=== PATIENT | male | born 1980 | race Caucasian/White ===

== ENCOUNTER → 2019-05-03 16:30 | Outpatient (CLI) | payer OTHER, SELFPAY ==
[2019-05-03 19:04] LABS: Erythrocyte Sedimentation Rate 5 MM/HR (0-15)
[2019-05-03 19:39] LABS: Uric Acid 4.8 mg/dL (3.5-8.5)
[2019-05-03 19:45] LABS: Rheumatoid Factor < 8.6 IU/mL (<12.0)
[2019-05-05 15:07] LABS: Angiotensin Converting Enzyme 27 U/L (9-67)
[2019-05-06 16:22] LABS: ANA Screen, IFA NEGATIVE (NEGATIVE)
[2019-05-06 18:35] LABS: RPR Screen Nonreactive (Nonreactive)
[2019-05-07 12:15] LABS: Mitogen-NIL > 10.00 IU/mL; NIL 0.02 IU/mL; QuantiFERON TB NEGATIVE (Negative); TB1-NIL < 0.01 IU/mL; TB2-NIL < 0.01 IU/mL
[2019-05-18 09:54] LABS: Lysozyme (Muramidase) 4.7 mcg/mL (5.0-11.0)
== END ==
PROVIDERS: PCP Family Medicine; Visit Provider Ophthalmology
DX: H20.013 Primary iridocyclitis, bilateral (principal)
CPT/HCPCS: 36415; 82164; 84550; 85549; 85651; 86038; 86430; 86480; 86592; 86780

== ENCOUNTER → 2019-07-08 09:55 | Outpatient (CLI) | payer OTHER, SELFPAY ==
[2019-07-10 17:20] LABS: HLA B27 NEGATIVE (Negative)
== END ==
PROVIDERS: Family Provider Family Medicine; PCP Family Medicine; Visit Provider Ophthalmology
DX: H20.9 Unspecified iridocyclitis (principal)
CPT/HCPCS: 36415; 81374

== ENCOUNTER → 2019-12-30 10:18 | Outpatient (CLI) | payer OTHER, SELFPAY ==
--- NOTE | 2019-12-30 | DI.RAD.S_ITS ---
PROCEDURE: XR FINGER LT MIN 2V INDICATIONS: LEFT RING FINGER PAIN TECHNIQUE: AP hand, 2 views of the left ring finger acquired. COMPARISON: None. FINDINGS: Bones: No fractures or dislocations. No suspicious bony lesions. Soft tissues: No suspicious soft tissue calcifications. Mild soft tissue edema is noted in the 4th digit. IMPRESSION: No acute osseous abnormality. Soft tissue edema is noted in the 4th finger. Dictated by: Ty Shepard M.D. on 12/30/2019 at 11:09 Approved by: Ty Shepard M.D. on 12/30/2019 at 11:10
== END ==
PROVIDERS: Family Provider Family Medicine; PCP Family Medicine; Referring Provider Family Medicine; Visit Provider Family Medicine
DX: M79.645 Pain in left finger(s) (principal); M79.89 Other specified soft tissue disorders
CPT/HCPCS: 73140

== ENCOUNTER → 2020-06-23 08:46 | Outpatient (CLI) | payer OTHER, SELFPAY ==
--- NOTE | 2020-06-23 09:13 | DI.CT.S_ITS ---
PROCEDURE: CT ABDOMEN PELVIS WO/W CON INDICATIONS: Right sided kidney pain TECHNIQUE: Optional 5 mm thick noncontrast images acquired from the diaphragm to the symphysis pubis. After the administration of intravenous contrast, 5 mm thick images acquired from the diaphragm to the symphysis pubis after a 10-minute delay. 2 mm thick coronal and sagittal reformats were then performed of the kidneys and ureters. For radiation dose reduction, the following was used: automated exposure control, adjustment of mA and/or kV according to patient size. COMPARISON: None. FINDINGS: Image quality: Excellent. Lung bases: Lung bases are clear. Heart size is normal. Urinary system: Kidneys demonstrate no renal stones or hydronephrosis. No perinephric stranding. There is symmetric bilateral renal enhancement. There is an oval slightly hyperattenuating right renal lesion measuring up to 1.0 x 0.8 cm with suggestion of mild internal enhancement following contrast administration. Renal calyces appear normal in morphology when filled with contrast. Opacified portions of both ureters demonstrate normal caliber without suspicious filling defects. Bladder wall thickness is normal. No calcified bladder stones. Other solid organs: Evaluation of the liver demonstrates no focal hepatic lesions. The gallbladder appears within normal limits without calcified gallstones. Biliary system is non-dilated. Pancreas enhances normally. No peripancreatic fat stranding or fluid collections. No pancreatic duct dilatation. The spleen is normal in size. No adrenal nodules. Peritoneum and bowel: Bowel loops demonstrate normal wall thickness and caliber. The appendix is normal in appearance. There are few colonic diverticula without acute diverticulitis. Moderate colonic stool distention is demonstrated in the distal colon. No free fluid or air. Nodes and vessels: No retroperitoneal or mesenteric adenopathy by size criteria. Aorta and inferior vena cava are normal in size. Abdominal wall: No ventral hernias. Pelvis: No pathologic free pelvic fluid. No inguinal hernias or adenopathy. Bones: No suspicious bony lesions. No vertebral body compression fractures. IMPRESSION: 1. Slightly hyperattenuating right renal lesion with suggestion of internal enhancement. The findings may represent a hemorrhagic cyst with the change in internal attenuation due to volume averaging artifact from the adjacent renal collecting system but a renal mass cannot be excluded. Recommend initial further evaluation with a dedicated ultrasound. 2. No evidence of nephrolithiasis, obstructive uropathy, or suspicious filling defects in the renal collecting systems. Dictated by: Jamir Hill M.D. on 06/23/2020 at 13:56 Approved by: Jamir Hill M.D. on 06/23/2020 at 14:08
== END ==
PROVIDERS: Family Provider Family Medicine; PCP Family Medicine; Referring Provider Family Medicine; Visit Provider Family Medicine
DX: N23 Unspecified renal colic (principal)
CPT/HCPCS: 74178; Q9967

== ENCOUNTER → 2020-06-24 12:17 | Outpatient (CLI) | payer OTHER, SELFPAY ==
--- NOTE | 2020-06-24 | DI.US.S_ITS ---
PROCEDURE: US RENAL COMPLETE INDICATIONS: RIGHT RENAL MASS TECHNIQUE: Real-time scanning was performed of the kidneys and bladder, with image documentation. COMPARISON: [facility], CT, CT ABDOMEN PELVIS WO/W CON, 06/23/2020, 8:59. FINDINGS: Kidneys: Kidneys are normal in size. Right kidney measures 11.3 cm long; left kidney measures 13.6 cm long. Right renal cortical thickness is 1.2 cm; left renal cortical thickness is 1.8 cm. Renal cortical echotexture is normal. Trace right pelviectasis. No definite hydronephrosis or nephrolithiasis. No suspicious solid mass lesions. Right renal cyst with low level internal echoes measuring 1.0 x 0.7 x 0.5 cm, too small to characterize accurately. Bladder: Pre-void bladder volume is 648 mL. Post-void residual is 36 mL. Pre-void images demonstrate no intraluminal masses or stones. On pre-void images, both of the ureteral jets are noted with color Doppler interrogation. (Of note, ureteral jets may not be detectable in up to 25% of cases due to insufficient differences in specific gravity between ureteral and bladder urine). Miscellaneous: No free pelvic fluid. IMPRESSION: Minimally complicated right cyst. Trace right pelviectasis No discrete mass identified. Dictated by: Nick Evans M.D. on 06/24/2020 at 15:26 Approved by: Nick Evans M.D. on 06/24/2020 at 15:32
== END ==
PROVIDERS: Family Provider Family Medicine; PCP Family Medicine; Referring Provider Family Medicine; Visit Provider Family Medicine
DX: N28.9 Disorder of kidney and ureter, unspecified (principal); N28.1 Cyst of kidney, acquired
CPT/HCPCS: 76770

== ENCOUNTER → 2020-07-30 18:50 | Outpatient (CLI) | payer OTHER, SELFPAY ==
--- NOTE | 2020-07-30 | DI.RAD.S_ITS ---
PROCEDURE: XR SACRUM COCCYX MIN 2V INDICATIONS: Radiculopathy, lumbar region/Low Back Pain TECHNIQUE: 3 views of the sacrum and coccyx acquired. COMPARISON: None. FINDINGS: Bones: No fractures or dislocations. No suspicious bony lesions. Soft tissues: Visualized bowel gas pattern is normal. No suspicious soft tissue densities. IMPRESSION: No sacral or coccygeal injury is seen. No suspicion for impingement by inflammatory or neoplastic process based on plain film findings. Depending on the clinical status follow-up by MR scanning may become necessary. Dictated by: Harpreet Mahmood M.D. on 07/31/2020 at 10:14 Approved by: Harpreet Mahmood M.D. on 07/31/2020 at 10:14
--- NOTE | 2020-07-30 | DI.MRI.S_ITS ---
PROCEDURE: MR LUMBAR SPINE WO CON INDICATIONS: Radiculopathy, lumbar region/Low Back Pain TECHNIQUE: Noncontrast sagittal T1 spin echo and T2 fast echo, sagittal STIR, axial T1 and T2 fast spin echo through the lumbar spine. In cases with scoliosis, additional coronal T2 fast spin echo may be performed. COMPARISON: None. FINDINGS: Image quality: Excellent. Alignment and Curvature: There is normal bony alignment. Bone Marrow: Marrow is of normal overall signal. No acute vertebral body compression fractures. Spinal Cord: Normal position and appearance of the conus. Paraspinous Soft Tissues: No paravertebral masses. T12-L1: Normal appearance. L1-L2: Normal appearance. L2-L3: Normal appearance. L3-L4: Normal appearance. L4-L5: Normal appearance. L5-S1: Normal appearance. IMPRESSION: No spinal canal stenosis, neural foraminal stenosis, or findings of nerve root impingement. Dictated by: Velasquez Batista M.D. on 07/31/2020 at 9:25 Approved by: Velasquez Batista M.D. on 07/31/2020 at 9:34
--- NOTE | 2020-07-30 | DI.MRI.S_ITS ---
PROCEDURE: MR PELVIS WO CON INDICATIONS: Radiculopathy, lumbar region/Low Back Pain TECHNIQUE: Noncontrast axial and coronal T1 spin echo and STIR through the lumbosacral plexus region. Optional contrast may be given, followed by axial and coronal T1 spin echo with fat saturation through the sacral plexus. COMPARISON: [facility], MR, MR LUMBAR SPINE WO CON, 07/30/2020, 19:16. FINDINGS: Image quality: Excellent. Lumbosacral plexus: Superior to the piriformis muscles, the pre-plexal structures appear normal, including the lumbosacral trunk and S1 root. Just anterior to the piriformis muscles, the sacral plexus proper demonstrates normal morphology (lumbosacral trunk, S1 to S3 nerve roots). Inferior to the piriformis muscles, the sciatic nerves appear normal. Soft tissues: The piriformis muscles appear symmetric in size. No presacral masses. Rectum appears normal in caliber and wall thickness. No pathologic free pelvic fluid. No visualized adenopathy by size criteria. Bones: Marrow is normal in overall signal. IMPRESSION: Normal examination, no inflammation or mass is impinging on the lumbosacral plexus. No inflammatory or neoplastic process is suspected. Dictated by: Harpreet Mahmood M.D. on 07/31/2020 at 9:34 Approved by: Harpreet Mahmood M.D. on 07/31/2020 at 9:37
--- NOTE | 2020-07-30 | DI.RAD.S_ITS ---
PROCEDURE: XR LUMBAR SPINE 2-3V INDICATIONS: Radiculopathy, lumbar region/Low Back Pain TECHNIQUE: 3 views of the lumbar spine were acquired. COMPARISON: None. FINDINGS: Bones: 5 [id number] vertebrae are present. There is normal bony alignment. No vertebral body compression fractures. No suspicious bony lesions. Soft tissues: Overlying bowel gas pattern is normal. No suspicious soft tissue calcifications. IMPRESSION: Normal for age, source of current symptoms is not seen. Dictated by: Harpreet Mahmood M.D. on 07/31/2020 at 10:13 Approved by: Harpreet Mahmood M.D. on 07/31/2020 at 10:13
== END ==
PROVIDERS: Family Provider Family Medicine; PCP Family Medicine; Referring Provider Family Medicine; Visit Provider Family Medicine
DX: M54.16 Radiculopathy, lumbar region (principal); M54.5 Low back pain
CPT/HCPCS: 72100; 72148; 72195; 72220

== ENCOUNTER → 2020-10-27 10:53 | Outpatient (ROUT) | payer OTHER, SELFPAY ==
[2020-10-27 11:13] LABS: COVID19 -Nasal RAPID Negative (Negative)
== END ==
PROVIDERS: Family Provider Family Medicine; PCP Family Medicine; Visit Provider Family Medicine
DX: Z01.812 Encounter for preprocedural laboratory examination (principal)
CPT/HCPCS: 87635

== ENCOUNTER → 2021-01-08 13:05 | Outpatient (ROUT) | payer OTHER, SELFPAY ==
[2021-01-08 13:31] LABS: COVID19 -Nasal RAPID Negative (Negative)
== END ==
PROVIDERS: Family Provider Family Medicine; PCP Family Medicine; Visit Provider Family Medicine
DX: R11.0 Nausea (principal); R11.10 Vomiting, unspecified; R19.7 Diarrhea, unspecified; Z20.822 Contact with and (suspected) exposure to COVID-19
CPT/HCPCS: 87635

== ENCOUNTER → 2021-02-04 12:58 | Outpatient (ROUT) | payer OTHER, SELFPAY ==
[2021-02-04 13:19] LABS: COVID19 -Nasal RAPID Negative (Negative)
== END ==
PROVIDERS: Family Provider Family Medicine; PCP Family Medicine; Visit Provider Family Medicine
DX: Z20.822 Contact with and (suspected) exposure to COVID-19 (principal)
CPT/HCPCS: 87635

== ENCOUNTER → 2021-02-26 13:33 | Outpatient (ROUT) | payer OTHER, SELFPAY ==
[2021-02-26 13:54] LABS: COVID19 -Nasal RAPID Negative (Negative)
== END ==
PROVIDERS: Family Provider Family Medicine; PCP Family Medicine; Visit Provider Family Medicine
DX: J02.9 Acute pharyngitis, unspecified (principal); R09.89 Other specified symptoms and signs involving the circulatory and respiratory systems
CPT/HCPCS: 87635

== ENCOUNTER → 2021-03-17 17:31 | Outpatient (ROUT) | payer OTHER, SELFPAY ==
[2021-03-17 18:17] LABS: COVID19 -Nasal RAPID Negative (Negative)
== END ==
PROVIDERS: Family Provider Family Medicine; PCP Family Medicine; Visit Provider Family Medicine
DX: Z20.822 Contact with and (suspected) exposure to COVID-19 (principal)
CPT/HCPCS: 87635

== ENCOUNTER → 2021-03-22 12:21 | Outpatient (ROUT) | payer OTHER, SELFPAY ==
[2021-03-22 14:21] LABS: COVID19 -Nasal RAPID Negative (Negative)
== END ==
PROVIDERS: Family Provider Family Medicine; PCP Family Medicine; Visit Provider Family Medicine
DX: Z20.822 Contact with and (suspected) exposure to COVID-19 (principal)
CPT/HCPCS: 87635

== ENCOUNTER 2021-11-12 10:55 | Emergency (ER) | payer OTHER, SELFPAY ==
[2021-11-12] VITALS (8 sets, daily range): BP systolic 106–132; BP diastolic 65–75; PULSE 54–74; RESP 15–26; TEMP 36.5; O2SAT 97–100; BMI 26.7
--- NOTE | 2021-11-12 11:17 | DI.RAD.S_ITS ---
PROCEDURE: XR CHEST 1V INDICATIONS: chest pain TECHNIQUE: One view of the chest was acquired. COMPARISON: None. FINDINGS: Surgical changes and devices: None. Lungs and pleura: Lungs are clear. No pleural effusions or pneumothorax. Mediastinum: Mediastinal contours appear normal. Heart size is normal. Bones and chest wall: No suspicious bony lesions. Overlying soft tissues appear unremarkable. IMPRESSION: No acute process. Dictated by: Cortney Thao M.D. on 11/12/2021 at 11:55 Approved by: Cortney Thao M.D. on 11/12/2021 at 11:56
--- NOTE | 2021-11-12 11:28 | ED_ITS ---
HPI - Chest Pain General Chief Complaint: Chest Pain Stated Complaint: cardaic rule out Time Seen by Provider: 11/12/21 11:21 Source: patient Mode of arrival: Ambulatory Limitations: no limitations History of Present Illness HPI narrative: 41-year-old male who is here for evaluation of left-sided chest pain also ti ngling in his left arm. He states that his symptoms started several days ago. It improved for short period of time but now has returned this morning things seem to be worse. He does have a history of anxiety. Takes no medications for this. He does not think that this is his anxiety that is causing the discomfort. He is also having burning in his throat. Does describe some shortness of breath. No abdominal pain. No nausea vomiting. No swelling in his legs. No prior cardiac pathology. Related Data Allergies Allergy/AdvReac Type Severity Reaction Status Date / Time No Known Drug Allergies Allergy Verified 11/12/21 12:40 Review of Systems Review of Systems ROS Unobtainable: All systems reviewed & are unremarkable except as noted in HPI and below Patient History Medical History Anxiety Social History Smoking Status: Never smoker Smoking Status: Never smoker alcohol intake frequency: holidays/special occasions only Substance Use Type: does not use Exam Initial Vital Signs Initial Vital Signs: Vital Signs Temperature 97.7 F 11/12/21 11:09 Pulse Rate 74 11/12/21 11:09 Respiratory Rate 22 11/12/21 11:09 Blood Pressure 129/75 11/12/21 11:09 Pulse Oximetry 100 11/12/21 11:09 Const General: cooperative, comfortable and well developed [facility] Head: normal to inspection and normocephalic Resp Effort & Inspection: labored, no respiratory distress and not tachypneic Auscultation: clear to auscultation bilaterally Cardio Rate: regular rate Rhythm: regular rhythm GI Inspection: normal to inspection and non-distended Palpation: soft and No tender Skin General: no rashes or lesions noted Neuro General: patient alert, patient awake, patient oriented x3 and moves all extremities Extrem General: normal to inspection and capillary refill normal Psych Affect: anxious affect Scores GCS [place] coma scale eye opening: Spontaneous [place] coma scale verbal response: Orientated [place] coma scale motor response: Obey commands [place] coma scale total score: 15 HEART Score Heart Score history: Slightly Suspicious Heart Score EKG: Normal Heart Score Age: < 45 years old Heart Score risk factors: No known risk factors Heart Score troponin: < or = to normal limit Heart Score Total: 0 Course Orders Ordered: ED Orders 11/12/21 11:17 XR chest 1V Stat EKG-12 Lead Stat 11/12/21 11:25 D Dimer Stat 11/12/21 11:36 Complete Blood Count AUTO DIFF Stat Comprehensive Metabolic Panel Stat Lipase Stat Magnesium Stat Troponin & CK Cardiac Panel Stat 11/12/21 13:30 Troponin I Stat Discontinued Medications Aspirin (Aspirin 81 Mg Chew Tab) 324 mg PO NOW ONE Stop: 11/12/21 11:26 Last Admin: 11/12/21 11:43 Dose: 324 mg Documented by: JOI Lorazepam (Lorazepam 0.5 Mg Tablet) 0.5 mg PO NOW ONE Stop: 11/12/21 11:27 Last Admin: 11/12/21 11:43 Dose: 0.5 mg Documented by: JOI Vital Signs Vital signs: Vital Signs - 8 hr 11/12/21 11:09 11/12/21 11:30 11/12/21 11:33 Temperature 97.7 F Pulse Rate 74 72 70 Respiratory Rate 22 24 26 H Blood Pressure 129/75 132/74 Pulse Oximetry 100 100 100 11/12/21 12:00 11/12/21 12:30 11/12/21 13:00 Temperature Pulse Rate 71 64 54 L Respiratory Rate 25 H 20 Blood Pressure 126/71 122/73 Pulse Oximetry 100 100 98 11/12/21 13:01 11/12/21 13:30 Temperature Pulse Rate 56 L 58 L Respiratory Rate 17 15 Blood Pressure 116/74 106/65 Pulse Oximetry 98 97 MDM - Chest Pain Lab Data Attestation: I reviewed the patient's lab results. Result diagrams: 11/12/21 11:36 11/12/21 11:36 Labs: Lab Results 11/12/21 11/12/21 11/12/21 Range/Units 11:25 11:36 11:36 WBC 5.0 (4.5-11.0) X10^3/uL RBC 4.82 (4.5-5.9) X10^6/uL Hgb 14.6 (13.5-17.5) g/dL Hct 42.0 (41-53) % MCV 87.1 (80-100) fL MCH 30.3 (26-34) PG MCHC 34.8 (30-36) % RDW 12.7 (11.6-14.8) % Plt Count 246 (150-400) X10^3/uL Neut % (Auto) 46.3 L (50-75) % Lymph % (Auto) 43.5 H (25-40) % [place] % (Auto) 7.9 (3-14) % Eos % (Auto) 1.4 L (2-4) % Baso % (Auto) 0.9 (0-2) % Neut # (Auto) 2300 (3116-8387) /uL Lymph # (Auto) 2200 (0559-2908) /uL [place] # (Auto) 400 (0-900) /uL Eos # (Auto) 100 (0-450) /uL Baso # (Auto) 0 (0-100) /uL D-Dimer < 200 (<230) ng/mL Sodium 140 (137-145) mmol/L Potassium 3.8 (3.4-5.1) mmol/L Chloride 110 H (98-107) mmol/L Carbon Dioxide 20 L (22-32) mmol/L BUN 17 (9-20) mg/dL Creatinine 1.13 (0.66-1.25) mg/dL Estimated GFR > 60 (>60) mL/min BUN/Creatinine Ratio 15.0 (6-22) Glucose 108 H (70-100) mg/dL Calcium 9.5 (8.4-10.2) mg/dL Magnesium 1.9 (1.6-2.3) mg/dL Total Bilirubin 0.8 (0.2-1.3) mg/dL AST 36 (17-59) IU/L ALT 19 (<50) IU/L Alkaline Phosphatase 64 (38-126) U/L Total Creatine Kinase 107 (55-170) U/L CK-MB (CK-2) 0.25 (<2.37) ng/mL CK-MB (CK-2) Rel Index 0.2 L (1.5-5.0) % Troponin I < 0.012 (0.01-0.034) ng/mL Total Protein 8.0 (6.3-8.2) g/dL Albumin 4.7 (3.5-5.0) g/dL Globulin 3.3 (1.7-4.1) g/dL Albumin/Globulin Ratio 1.4 (1.0-2.8) Lipase 107 (23-300) U/L 11/12/21 Range/Units 13:30 WBC (4.5-11.0) X10^3/uL RBC (4.5-5.9) X10^6/uL Hgb (13.5-17.5) g/dL Hct (41-53) % MCV (80-100) fL MCH (26-34) PG MCHC (30-36) % RDW (11.6-14.8) % Plt Count (150-400) X10^3/uL Neut % (Auto) (50-75) % Lymph % (Auto) (25-40) % [place] % (Auto) (3-14) % Eos % (Auto) (2-4) % Baso % (Auto) (0-2) % Neut # (Auto) (9710-9858) /uL Lymph # (Auto) (1669-3137) /uL [place] # (Auto) (0-900) /uL Eos # (Auto) (0-450) /uL Baso # (Auto) (0-100) /uL D-Dimer (<230) ng/mL Sodium (137-145) mmol/L Potassium (3.4-5.1) mmol/L Chloride (98-107) mmol/L Carbon Dioxide (22-32) mmol/L BUN (9-20) mg/dL Creatinine (0.66-1.25) mg/dL Estimated GFR (>60) mL/min BUN/Creatinine Ratio (6-22) Glucose (70-100) mg/dL Calcium (8.4-10.2) mg/dL Magnesium (1.6-2.3) mg/dL Total Bilirubin (0.2-1.3) mg/dL AST (17-59) IU/L ALT (<50) IU/L Alkaline Phosphatase (38-126) U/L Total Creatine Kinase (55-170) U/L CK-MB (CK-2) (<2.37) ng/mL CK-MB (CK-2) Rel Index (1.5-5.0) % Troponin I < 0.012 (0.01-0.034) ng/mL Total Protein (6.3-8.2) g/dL Albumin (3.5-5.0) g/dL Globulin (1.7-4.1) g/dL Albumin/Globulin Ratio (1.0-2.8) Lipase (23-300) U/L Imaging Data Chest x-ray: Radiologist's Impression: [address] [address] XRay Report Signed Patient: Frank Laughlin MR#: [id number] : 1980 Acct:[id number] Age/Sex: 41 / M Date of Service: 11/12/21 Loc: ED Accession Number: [id number] ?? Procedure: XR chest 1V Ordering Provider: Vimal Bowling D.O. PROCEDURE:? XR CHEST 1V ? INDICATIONS:? chest pain ? TECHNIQUE:? One view of the chest was acquired.? ? COMPARISON:? None. ? FINDINGS:? ? Surgical changes and devices:? None.? ? Lungs and pleura:? Lungs are clear.? No pleural effusions or pneumothorax.? ? Mediastinum:? Mediastinal contours appear normal.? Heart size is normal.? ? Bones and chest wall:? No suspicious bony lesions.? Overlying soft tissues appear unremarkable.? ? IMPRESSION:? No acute process. ? ? Dictated by: Cortney Thao M.D. on 11/12/2021 at 11:55 ? ? Approved by: Cortney Thoa M.D. on 11/12/2021 at 11:56? ECG Data Attestation: I personally reviewed and interpreted this ECG as follows: Prior ECG tracings: not available for review Interpretation: Sinus rhythm Ventricular rate is 74 Normal axis Normal QRS Normal QTC Incomplete right bundle-branch block No ST T wave changes MDM Narrative Medical decision making narrative: Patient has resolution of symptoms since arrival. I do suspect a anxiety component to his symptoms. Troponins negative x2. Low risk heart score. D- dimer negative. No indication for antibiotics. No indication for further emergency department workup. Patient is given return precautions and follow-up instructions. He expressed understanding and agreement. Discharge Plan Departure Patient Disposition: Home Clinical Impression: Atypical chest pain, Anxiety Instructions: DI for Atypical Chest Pain, DI for Anxiety -- Adult Activity Restrictions/Additional Instructions: Your workup here in the emergency department is very reassuring. I do recommend that you contact the [facility] office at [phone] to establish a primary provider. Return to the emergency department for any new or worsening symptoms. Referrals: Ruchi Schneider MD [Primary Care Provider] -
[2021-11-12] MEDS: LORazepam 0.5 MG TABLET PO (11:43)
[2021-11-12] MEDS: ASPIRIN 81 MG CHEW TAB 324 MG PO (11:43)
[2021-11-12 11:45] LABS: Add Manual Diff / Slide Review NO; Basophils Absolute Auto 0 /uL (0-100); Basophils Percent Auto 0.9 % (0-2); Eosinophils Absolute Auto 100 /uL (0-450); Eosinophils Percent Auto 1.4 % (2-4); Hemoglobin 14.6 g/dL (13.5-17.5); Lymphocytes Absolute Auto 2200 /uL (1100-4500); Lymphocytes Percent Auto 43.5 % (25-40); Mean Corpuscular HGB Conc 34.8 % (30-36); Mean Corpuscular Hemoglobin 30.3 PG (26-34); Mean Corpuscular Volume 87.1 fL (80-100); Monocytes Absolute Auto 400 /uL (0-900); Monocytes Percent Auto 7.9 % (3-14); Neutrophils Absolute Auto 2300 /uL (1500-7000); Neutrophils Percent Auto 46.3 % (50-75); Platelet Count 246 X10^3/uL (150-400); Red Blood Cell Count 4.82 X10^6/uL (4.5-5.9); Red Cell Distribution Width 12.7 % (11.6-14.8)
[2021-11-12 11:55] LABS: Alanine Aminotransferase 19 IU/L (<50); Albumin 4.7 g/dL (3.5-5.0); Albumin Globulin Ratio 1.4 (1.0-2.8); Alkaline Phosphatase 64 U/L (38-126); Aspartate Aminotransferase 36 IU/L (17-59); Bilirubin Total 0.8 mg/dL (0.2-1.3); Blood Urea Nitrogen 17 mg/dL (9-20); Calcium 9.5 mg/dL (8.4-10.2); Carbon Dioxide 20 mmol/L (22-32); Chloride 110 mmol/L (98-107); Creatine Kinase 107 U/L (55-170); Estimated Glomerular Filt Rate > 60 mL/min (>60); Globulin 3.3 g/dL (1.7-4.1); Glucose 108 mg/dL (70-100); HEMOLYSIS 32 (0-50); Lipase 107 U/L (23-300); Magnesium 1.9 mg/dL (1.6-2.3); Potassium 3.8 mmol/L (3.4-5.1); Sodium 140 mmol/L (137-145)
[2021-11-12 11:58] LABS: D Dimer < 200 ng/mL (<230)
[2021-11-12 12:07] LABS: Troponin I < 0.012 ng/mL (0.01-0.034)
[2021-11-12 12:11] LABS: CKMB % Relative Index 0.2 % (1.5-5.0); Creatine Kinase MB 0.25 ng/mL (<2.37)
[2021-11-12 14:02] LABS: Troponin I < 0.012 ng/mL (0.01-0.034)
== END 2021-11-12 14:29 | disposition home or self-care (01) ==
PROVIDERS: Emergency Provider Emergency Medicine; Family Provider Family Medicine; PCP Family Medicine
DX: R07.89 Other chest pain (principal); F41.9 Anxiety disorder, unspecified
CPT/HCPCS: 36415; 71045; 80053; 82550; 82553; 83690; 83735; 84484; 85025; 85379; 93005; 99284

== ENCOUNTER → 2025-05-14 14:20 | Outpatient (ROUT) | payer OTHER, SELFPAY | PROVIDERS: Family Provider Family Medicine; PCP Family Medicine; Visit Provider Family Medicine | DX: E29.1 Testicular hypofunction (principal) | CPT/HCPCS: 84403 ==

== ENCOUNTER → 2025-05-20 12:46 | Outpatient (ROUT) | payer OTHER, SELFPAY ==
[2025-05-20 13:38] LABS: Prostate Specific Antigen 0.730 ng/mL (0.10-4.00)
[2025-05-20 14:44] LABS: Vitamin D 25 Hydroxy (D3) 41.8 ng/mL (30.0-100.0)
[2025-05-20 15:04] LABS: Follicle Stimulating Hormone 5.41 mIU/mL
== END ==
PROVIDERS: Family Provider Family Medicine; PCP Family Medicine; Visit Provider Family Medicine
DX: E34.9 Endocrine disorder, unspecified (principal)
CPT/HCPCS: 82306; 83001; 83002; 84153; 84270; 84403